=== PATIENT | female | born 1985 | race Hispanic/Latino ===

== ENCOUNTER 2017-04-27 05:57 | Inpatient (IN) | payer OTHER ==
[~2017-04-27] VITALS: Ht 160 cm; Wt 62.0 kg
[2017-04-27 06:06] VITALS: BP 116/70
[2017-04-27 07:17] LABS: MEAN CORPUSCULAR HEMOGLOBIN 30.7 pg (27.0-33.0); MEAN CORPUSCULAR HGB CONC 33.9 g/dl (32.0-36.5); MEAN CORPUSCULAR VOLUME 90.3 fl (80.0-96.0); RED CELL DISTRIBUTION WIDTH 13.3 % (11.5-14.5); WHITE BLOOD COUNT 10.2 K/mm3 (4.0-10.0)
[2017-04-27] MEDS ORDERED: LACTATED RINGER'S 1000 ML IV STA (07:24)
[2017-04-27] MEDS ORDERED: PRENTAB9 PO (07:31)
--- NOTE | 2017-04-27 08:22 | IPNPDOC ---
Text Note Date of Service The patient was seen on 04/27/17. NOTE [id number] @ 0815 30 yo @ 41+0 presents to L&D for IOL d/t pending post-dates. Report from Bui @ [id number]. S: resting in bed, denies ctx's, spouse and mother are at bedside O: VS- WNL, afebrile FHR- 140, moderate variability, + accels, early decels CTXs- Q 2-6 min, lasting < 120 sec, palpated as mild, resting tone palpated as soft SVE- 1/thick/-2, soft/post/vtx Cook balloon placed with 60/60 mls A: 30 yo @ 41+0 here for IOL d/t pending post-dates with no cervical change from previous exam. CAT I FHR tracing, CTXs present P: continue to monitor and assess, reassess status of cook balloon Q 1 hour by RN, complete 1000 ml LR bolus, Remove cook @ 12 hour liberty if not out VS,Geovanye, I+O VS, Zachbone, I+O Laboratory Tests 04/27/17 07:01 Red Blood Count 4.19, Mean Corpuscular Volume 90.3, Mean Corpuscular Hemoglobin 30.7, Mean Corpuscular Hemoglobin Concent 33.9, Red Cell Distribution Width 13.3 Vital Signs Date Time Temp Pulse Resp B/P (MAP) Pulse Ox O2 Delivery O2 Flow Rate FiO2 04/27/17 06:06 98.5 105 18 116/70 (85) SISSY WILSON CNM Apr 27, 2017 08:22
[2017-04-27] MEDS: LR 1,000 ML IV SCH ×2 (08:53→16:34)
[2017-04-27 12:22] VITALS: BP 112/63
[2017-04-27 15:06] VITALS: BP 106/60
[2017-04-27 16:16] VITALS: BP 115/51
--- NOTE | 2017-04-27 17:09 | IPNPDOC ---
Text Note Date of Service The patient was seen on 04/27/17. NOTE [id number] @ 1707 30 yo @ 41+0 presents to L&D for IOL d/t pending post-dates. S: resting in bed, notes some intermittent CTXs, spouse and mother are at bedside O: VS- WNL, afebrile FHR- 140, moderate variability, + accels, early decels CTXs- Q 2-6 min, lasting < 120 sec, palpated as mild, resting tone palpated as soft SVE- deferred Cook balloon out @ 1700 A: 30 yo @ 41+0 here for IOL d/t pending post-dates with cervical change d/t balloon out. CAT I FHR tracing, CTXs present P: continue to monitor and assess, regular diet x 1 now, start pitocin after diet, titrate pitocin per unit protocol VS,Fishbone, I+O VS, Fishbone, I+O Laboratory Tests 04/27/17 07:01 Red Blood Count 4.19, Mean Corpuscular Volume 90.3, Mean Corpuscular Hemoglobin 30.7, Mean Corpuscular Hemoglobin Concent 33.9, Red Cell Distribution Width 13.3 Vital Signs Date Time Temp Pulse Resp B/P (MAP) Pulse Ox O2 Delivery O2 Flow Rate FiO2 04/27/17 06:06 98.5 105 18 116/70 (85) SISSY WILSON CNM Apr 27, 2017 17:09
[2017-04-27] MEDS ORDERED: OXYTOCIN DRIP 30 UNITS in APPROPRIATE DILUENT 1 EA IV SCH (17:15)
[2017-04-27 18:18] VITALS: BP 108/54
--- NOTE | 2017-04-27 19:30 | IPNPDOC ---
Text Note Date of Service The patient was seen on 04/27/17. NOTE Report to Dr. Grajeda @ 1925 VS,Bernabe, I+O Bernabe MCCANN, I+O Laboratory Tests 04/27/17 07:01 Red Blood Count 4.19, Mean Corpuscular Volume 90.3, Mean Corpuscular Hemoglobin 30.7, Mean Corpuscular Hemoglobin Concent 33.9, Red Cell Distribution Width 13.3 Vital Signs Date Time Temp Pulse Resp B/P (MAP) Pulse Ox O2 Delivery O2 Flow Rate FiO2 04/27/17 18:18 98.9 90 16 108/54 (72) SISSY WILSON CNM Apr 27, 2017 19:30
[2017-04-27] MEDS ORDERED: FENTANYL 2MCG/ML ROPIVACAINE 0.2% IN 0.9% NACL 200ML IVBAG As Ordered ONE (20:52)
[2017-04-27] MEDS ORDERED: DIBUCAINE 1% OINTMENT 30GM TOP PRN (21:45)
[2017-04-27] MEDS ORDERED: ANUSOL HC CREAM 30GM TOP PRN (21:45)
[2017-04-27] MEDS ORDERED: MEASLES,MUMPS,RUBELLA VACCINE INJ (MMR-II) (90707) SC SCH (21:45)
[2017-04-27] MEDS ORDERED: DOCUSATE SODIUM 100 MG CAP PO PRN (21:45)
[2017-04-27] MEDS ORDERED: METHYLERGONOVINE MALEATE 0.2 MG TAB PO PRN (21:45)
[2017-04-27] MEDS ORDERED: MOM 30ML SUSPENSION UDC PO PRN (21:45)
[2017-04-27] MEDS ORDERED: ACETAMINOPHEN 500 MG TAB PO PRN (21:45)
[2017-04-27] MEDS ORDERED: RHOGAM 300 MCG (1500 IU) INJ (J2790) IM SCH (21:45)
[2017-04-27 21:46] LABS: CORD GAS ABE V 0.1; CORD GAS HCO3 V 20.8 MEQ/L; CORD GAS O2 SAT V 77.4 %; CORD GAS PCO2 V 25.4 mmHg; CORD GAS PH V 7.532 UNITS; CORD GAS PO2 V 28.7 mmHg; CORD GAS TCO2 V 21.6 MEQ/L
[2017-04-27 21:49] LABS: CORD GAS O2 SAT A < 15.0 %; CORD GAS PO2 A < 10.0 mmHg
[2017-04-27 21:50] LABS: CORD GAS ABE A 1.3; CORD GAS HCO3 A 29.3 MEQ/L; CORD GAS PCO2 A 59.8 mmHg; CORD GAS PH A 7.308 UNITS; CORD GAS TCO2 A 31.1 MEQ/L
--- NOTE | 2017-04-27 22:42 | DN ---
DATE: 04/27/2017 DELIVERY NOTE: This lady is 41 and 1 weeks' of gestation, induction of labor, had an ARM at 4 cm, draining meconium stained liquor precipitated up to full dilatation, delivered over an intact perineum a live female weighing 7 pounds, 3 ounces 3064 grams, of 8 and 9 and 1 and 5 minutes respectively. Cord around the neck once loose. Placenta delivered spontaneously thereafter. Three-vessel cord membranes and tissues intact. Arterial and venous pH performed. The uterus contracted well under Pitocin. Examination of vagina, anterior, posterior and lateral scott and cervix were within normal limits. Sphincter is intact. The patient and baby tolerating procedure well.
[2017-04-27] MEDS: IBUPROFEN 800 MG TAB PO PRN (22:44)
[2017-04-27 23:32] VITALS: BP 129/60
[2017-04-28] MEDS ORDERED: OXYTOCIN INJ 10 UNITS/ML VIAL (J2590) IV ONE (05:00)
[2017-04-28 06:03] VITALS: BP 105/65
[2017-04-28 07:02] LABS: MEAN CORPUSCULAR HEMOGLOBIN 31.1 pg (27.0-33.0); MEAN CORPUSCULAR VOLUME 91.3 fl (80.0-96.0); WHITE BLOOD COUNT 15.2 K/mm3 (4.0-10.0)
[2017-04-28] MEDS: PRENATAL VITAMINS CHEWABLE TABLET PO SCH (08:03)
--- NOTE | 2017-04-28 09:51 | IPN ---
DATE: 04/28/2017 32-year-old 3 now para 2 admitted for induction labor at 41 +1 weeks of gestation. Spontaneous vaginal delivery of female infant 7 pounds 3 ounces, 3264 grams. of 8 and 9 and one and five minutes respectively. No epidural in place. She had an arterial pH of 7.30, base excess of 1.3, venous pH 7.53, base excess of 0.1. Her admitting hemoglobin was 12.8, hematocrit 37.8, platelets are 224. day #1 hemoglobin 12.6, hematocrit 37.0, platelets are 237. This morning, we discussed phlebitis, cystitis, mastitis, endometritis, cellulitis, diet, exercise, pain management, perineal, breast and wound care. The patient is planning on using oral contraceptives when she goes home. Today her blood pressure is 105/65, respirations 18, pulse 92, temperature 98.0. The rest the examination is unremarkable. She is normocephalic, atraumatic. Neck: Full range of motion. Pupils equal and reactive to light. Distal pulses symmetric. No DVT, PE or superficial phlebitis. Chest is clear bilaterally at bases, no wheezes, no rhonchi. No CVA tenderness. Uterus is nontender, two below, four quadrant bowel sounds are noted. Moderate lochia. No rashes, lesions or pruritus. No arthralgia, myalgia. No complaints of cough, wheezes, shortness of breath or dyspnea on exertion. No chest pain. Not bleeding. Neuro complete. No incontinency, urgency or frequency. No nausea, vomiting, diarrhea, constipation. Her past surgical, family history and medical history unremarkable. She does not smoke or drink. She does not abuse drugs. There is no domestic violence. In summary, we have a late term gestation, induction of labor, delivered a live female for discharge tomorrow with oral contraceptives and meds at discharge.
[2017-04-28] MEDS: IBUPROFEN 800 MG TAB PO PRN (15:09)
[2017-04-28 17:19] VITALS: BP 122/64
[2017-04-29 05:49] VITALS: BP 116/65
[2017-04-29] MEDS: PRENATAL VITAMINS CHEWABLE TABLET PO SCH (08:26)
[2017-04-29] MEDS ORDERED: COLA100C5 PO (10:10)
[2017-04-29] MEDS ORDERED: IBUP-1114 PO (10:10)
[2017-04-29] MEDS ORDERED: ACET50TA PO (10:10)
== END 2017-04-29 11:24 | disposition home or self-care (01) | DRG 775 ==
LOC: M LDI 05:57 → M OBS 23:26
PROVIDERS: ADMIT Student in an Organized Health Care Education/Training Program; ATTEND Student in an Organized Health Care Education/Training Program
PROC: 10E0XZZ Delivery of Products of Conception, External Approach (ICD-10-PCS; principal; 2017-04-27)
PROC: 3E033VJ Introduction of Other Hormone into Peripheral Vein, Percutaneous Approach (ICD-10-PCS; 2017-04-27)
PROC: 10907ZC Drainage of Amniotic Fluid, Therapeutic from Products of Conception, Via Natural or Artificial Opening (ICD-10-PCS; 2017-04-27)
PROC: 30233S1 Transfusion of Nonautologous Globulin into Peripheral Vein, Percutaneous Approach (ICD-10-PCS; 2017-04-29)
DX: O48.0 Post-term pregnancy (principal); Z37.0 Single live birth; Z3A.41 41 weeks gestation of pregnancy; Z79.899 Other long term (current) drug therapy; O77.0 Labor and delivery complicated by meconium in amniotic fluid; O69.81X0 Labor and delivery complicated by cord around neck, without compression, not applicable or unspecified

== ENCOUNTER 2018-08-20 01:28 | Inpatient (IN) | payer OTHER ==
[2018-08-20] MEDS ORDERED: LACTATED RINGER'S 1000 ML IV (02:09)
[2018-08-20] MEDS ORDERED: LR 1,000 ML IV (02:09)
[2018-08-20 02:20] LABS: HEMATOCRIT 37.5 % (36.0-47.0); HEMOGLOBIN 12.5 g/dl (12.0-15.5); MEAN CORPUSCULAR HEMOGLOBIN 29.2 pg (27.0-33.0); MEAN CORPUSCULAR HGB CONC 33.3 g/dl (32.0-36.5); MEAN CORPUSCULAR VOLUME 87.6 fl (80.0-96.0); PLATELET COUNT, AUTOMATED 212 10^3/uL (150-450); RED BLOOD COUNT 4.28 10^6/uL (4.00-5.40); RED CELL DISTRIBUTION WIDTH 13.8 % (11.5-14.5); WHITE BLOOD COUNT 11.1 10^3/uL (4.0-10.0)
[2018-08-20] MEDS ORDERED: FENTANYL 2MCG/ML ROPIVACAINE 0.2% IN 0.9% NACL 200ML IVBAG As Ordered (02:49)
[2018-08-20] MEDS ORDERED: NALOXONE INJ 0.4 MG/1 ML VIAL (J2310) IV (03:30)
[2018-08-20] MEDS ORDERED: ONDANSETRON 4MG/2ML VIAL (J2405) IV (03:30)
[2018-08-20] MEDS ORDERED: REFRIGERATOR IV KEYS XX (03:30)
[2018-08-20] MEDS ORDERED: diphenhydrAMINE INJ 50MG/ML VIAL (J1200) IV (03:30)
[2018-08-20] MEDS ORDERED: EPIDURAL/PCA KEYS XX (03:30)
[2018-08-20] MEDS ORDERED: ePHEDrine SULFATE 25 MG/5 ML(5MG/ML) SYRINGE IV (03:30)
[2018-08-20] MEDS ORDERED: EPIDURAL COMMENT XX (03:30)
[2018-08-20] MEDS ORDERED: FENTANYL/ROPIVACAINE/NACL BAG 200 ML EPIDURAL (03:30)
[2018-08-20] MEDS ORDERED: OXYTOCIN 30 UNITS IN 0.9% NaCl 500ML IV BAG (J2590) As Ordered (04:39)
[2018-08-20] MEDS ORDERED: OXYTOCIN DRIP 30 UNITS in APPROPRIATE DILUENT 1 EA IV (04:50)
[2018-08-20] MEDS ORDERED: MEASLES,MUMPS,RUBELLA VACCINE INJ (MMR-II) (90707) SC (05:00)
[2018-08-20] MEDS ORDERED: DIBUCAINE 1% OINTMENT 30GM TOP (05:00)
[2018-08-20] MEDS ORDERED: ACETAMINOPHEN 500 MG TAB PO (05:00)
[2018-08-20] MEDS: PRENATAL VITAMINS CHEWABLE TABLET PO (10:32)
[2018-08-20] MEDS: IBUPROFEN 800 MG TAB PO (17:05)
[2018-08-20] MEDS: DOCUSATE SODIUM 100 MG CAP PO (21:01)
[2018-08-21] MEDS: IBUPROFEN 800 MG TAB PO (05:40)
[2018-08-21] MEDS: PRENATAL VITAMINS CHEWABLE TABLET PO (08:33)
[2018-08-21 09:51] LABS: FETAL SCREEN PROF. 1 1
[2018-08-21] MEDS: RHOGAM 300 MCG (1500 IU) INJ (J2790) IM (10:38)
== END 2018-08-21 14:45 | disposition home or self-care (01) | DRG 807 ==
LOC: M LDO 01:28 → M LDI 02:00 → M OBS 07:07
PROVIDERS: Obstetrics & Gynecology; Pediatrics
PROC: 10E0XZZ Delivery of Products of Conception, External Approach (ICD-10-PCS; principal; 2018-08-20)
PROC: 10907ZC Drainage of Amniotic Fluid, Therapeutic from Products of Conception, Via Natural or Artificial Opening (ICD-10-PCS; 2018-08-20)
DX: O48.0 Post-term pregnancy (principal); Z37.0 Single live birth; Z3A.40 40 weeks gestation of pregnancy; O09.523 Supervision of elderly multigravida, third trimester

== ENCOUNTER → 2020-12-10 | Outpatient (CLI) | payer OTHER ==
[~2020-12-10] MED LIST: COLA100C5 PO; IBUP-1114 PO; MAPA500T2 PO; NUPE1OIN2 TOP; PRENTAB9 PO
== END ==
LOC: M LABSMTC 11:56
PROVIDERS: ATTEND Pediatrics
DX: Z11.52 Encounter for screening for COVID-19 (principal)